=== PATIENT | male | born 1980 | race Caucasian/White ===

== ENCOUNTER 2016-12-09 01:36 | Emergency (ER) | payer BC, OTHER ==
[~2016-12-09] VITALS: Ht 172.7 cm; Wt 63.6 kg
[2016-12-09 01:47] VITALS: BP 136/94
[2016-12-09] MEDS ORDERED: ED- HYDROcodone/ACETAMINOPHEN 5MG/325MG (NORCO) 6 TABLETS/BTL PO ONE (02:00)
== END 2016-12-09 02:11 | disposition home or self-care (01) ==
LOC: ED 01:39
DX: K03.81 Cracked tooth (principal)
CPT/HCPCS: 99282; 99283

== ENCOUNTER 2016-12-10 22:18 | Emergency (ER) | payer BC, OTHER ==
[~2016-12-10] VITALS: Ht 172.7 cm; Wt 60.7 kg
[2016-12-10] MEDS ORDERED: CLINDAMYCIN 150 MG (CLEOCIN) CAP PO ONE (22:45)
[2016-12-10] MEDS ORDERED: KETOROLAC 60 MG/2 ML (TORADOL) VIAL IM ONE (22:45)
[2016-12-10 23:32] VITALS: BP 144/95
== END 2016-12-10 23:34 | disposition home or self-care (01) ==
LOC: ED 22:19
DX: K04.7 Periapical abscess without sinus (principal); K05.20 Aggressive periodontitis, unspecified
CPT/HCPCS: 96372; 99282; J1885; 99283